=== PATIENT | male | born 1940 | race Caucasian/White ===

== ENCOUNTER → 2017-06-23 | Outpatient (CLI) | payer MEDICARE | END | disposition home or self-care (01) | LOC: CFH 08:38 | PROVIDERS: ATTEND Internal Medicine Critical Care Medicine | DX: R06.02 Shortness of breath (principal) | CPT/HCPCS: 71250 ==

== ENCOUNTER 2019-06-02 15:25 | Emergency (ER) | payer MEDICARE ==
[~2019-06-02] VITALS: Ht 182.9 cm; Wt 80.0 kg
--- NOTE | 2019-06-02 15:55 | NUR ---
PT HERE WITH C/O RLQ ABD PAIN, HAS HAD OVER THE LAST COUPLE DAYS AND HAS GOTTON A BIT WORSE. PT DENIES CP, TRAUMA, N/V/D, URINARY SYMPTOMS.
[2019-06-02] MEDS ORDERED: SODIUM CHLORIDE FLUSH 10ML SYR IVF ONE (16:00)
[2019-06-02 16:04] LABS: BASOPHILS # (AUTO) 0.03 x10^3/uL (0-0.1); BASOPHILS % (AUTO) 0 % (0-1); EOSINOPHILS # (AUTO) 0.04 x10^3/uL (0-0.4); EOSINOPHILS % (AUTO) 0 % (1-7); LYMPHOCYTES # (AUTO) 1.48 x10^3/uL (1-3.4); LYMPHOCYTES % (AUTO) 14 % (22-44); MD NO; MEAN CORPUSCULAR HEMOGLOBIN 30.9 pg (27.5-34.5); MEAN CORPUSCULAR HGB CONC 32.8 g/dL (33.2-36.2); MEAN CORPUSCULAR VOLUME 94.1 fL (81-97); MEAN PLATELET VOLUME 7.5 fL (7.4-10.4); MONOCYTES % (AUTO) 5 % (2-9); NEUTROPHILS # (AUTO) 8.85 x10^3/uL (1.8-6.8); NEUTROPHILS % (AUTO) 80 % (42-75); PLATELET COUNT 394 x10^3/uL (130-400); RED BLOOD COUNT 4.88 x10^6/uL (4.38-5.82); RED CELL DISTRIBUTION WIDTH 13.9 % (9.4-14.8)
--- NOTE | 2019-06-02 16:12 | NUR ---
PT AMBULATED TO BR WITH STEADY GAIT, UA COLLECTED AND SENT. PIV INITIATED AND LABS DRAWN AND SENT TO LAB. PT TO BP, CONT PULSE OX MONITORING PT TO GO TO CT
[2019-06-02 16:15] LABS: ALANINE AMINOTRANSFERASE 34 U/L (12-78); ALBUMIN 3.9 g/dL (3.4-5.0); ANION GAP 8 mmol/L (5-15); CHLORIDE 108 mmol/L (98-107); CREATININE 1.09 mg/dL (0.7-1.3)
[2019-06-02 16:17] LABS: ALKALINE PHOSPHATASE 104 U/L (45-117); BILIRUBIN,TOTAL 0.5 mg/dL (0.2-1.0); TOTAL PROTEIN 7.9 g/dL (6.4-8.2)
[2019-06-02 16:21] LABS: MICROSCOPIC NOT IND
[2019-06-02 16:24] LABS: CULTURE INDICATED? NO
[2019-06-02 17:02] VITALS: BP 200/98
--- NOTE | 2019-06-02 17:03 | NUR ---
PT RESTING ON GURNEY, STILL AWAITING CT. BP RECHECKED BY MANUAL AND IS ELEVATED 200/98, PT DENIES CP, DIZZINESS, KC. UPDATED, NO ORDERS AT THIS TIME
[2019-06-02] MEDS ORDERED: OMNIPAQUE 350 MG/ML, 100ML BOTTLE ONE (17:49)
== END 2019-06-02 18:47 | disposition home or self-care (01) ==
LOC: ED 18:15
DX: N20.0 Calculus of kidney (principal); N23 Unspecified renal colic
CPT/HCPCS: 36415; 74177; 80053; 81003; 83690; 85025; 99284; Q9967

== ENCOUNTER → 2019-06-21 | Outpatient (CLI) | payer MEDICARE ==
[~2019-06-21] MED LIST: ASPI81TA45 PO; ATOR20TA37 PO; IRBE75TA10 PO; OMEP20TA62 PO; STATIN PO
== END | disposition home or self-care (01) ==
LOC: RAD 08:57
PROVIDERS: ATTEND Urology
DX: N20.0 Calculus of kidney (principal); Z87.891 Personal history of nicotine dependence
CPT/HCPCS: 74018

== ENCOUNTER 2019-06-22 07:12 | Day surgery (SDC) | payer MEDICARE ==
[2019-06-20 11:59] LABS: BASOPHILS # (AUTO) 0.04 x10^3/uL (0-0.1); BASOPHILS % (AUTO) 0 % (0-1); EOSINOPHILS # (AUTO) 0.36 x10^3/uL (0-0.4); EOSINOPHILS % (AUTO) 4 % (1-7); LYMPHOCYTES # (AUTO) 1.99 x10^3/uL (1-3.4); LYMPHOCYTES % (AUTO) 24 % (22-44); MD NO; MEAN CORPUSCULAR HEMOGLOBIN 30.9 pg (27.5-34.5); MEAN CORPUSCULAR HGB CONC 32.9 g/dL (33.2-36.2); MEAN CORPUSCULAR VOLUME 93.8 fL (81-97); MEAN PLATELET VOLUME 7.6 fL (7.4-10.4); MONOCYTES # (AUTO) 0.71 x10^3/uL (0.2-0.8); MONOCYTES % (AUTO) 9 % (2-9); NEUTROPHILS # (AUTO) 5.07 x10^3/uL (1.8-6.8); NEUTROPHILS % (AUTO) 62 % (42-75); PLATELET COUNT 315 x10^3/uL (130-400); RED BLOOD COUNT 4.73 x10^6/uL (4.38-5.82); RED CELL DISTRIBUTION WIDTH 14.1 % (9.4-14.8)
[2019-06-20 12:10] LABS: ALBUMIN 3.7 g/dL (3.4-5.0); ANION GAP 8 mmol/L (5-15); CALCIUM 9.1 mg/dL (8.5-10.1); CHLORIDE 109 mmol/L (98-107)
[2019-06-20 12:15] LABS: ALANINE AMINOTRANSFERASE 33 U/L (12-78); ALKALINE PHOSPHATASE 103 U/L (45-117); BILIRUBIN,TOTAL 0.7 mg/dL (0.2-1.0); CREATININE 1.19 mg/dL (0.7-1.3); TOTAL PROTEIN 7.4 g/dL (6.4-8.2)
[~2019-06-22] VITALS: Ht 182.9 cm; Wt 79.0 kg
[2019-06-22 07:54] VITALS: BP 120/76
[2019-06-22] MEDS ORDERED: LACTATED RINGERS 1,000 ML IV SCH (08:13)
[2019-06-22] MEDS ORDERED: FENTANYL PF 250 MCG/5ML ONE (08:53)
[2019-06-22] MEDS ORDERED: MIDAZOLAM 1 MG/ML, 2ML ONE (08:53)
[2019-06-22] MEDS ORDERED: SUGAMMADEX 200 MG/2 ML IVPush ONE (09:35)
[2019-06-22] MEDS ORDERED: PHENYLEPHRINE 10 MG/ML ONE ×2 (09:35→10:39)
[2019-06-22] MEDS ORDERED: HYDROmorphone 2 MG/ML, 1ML IVPush PRN (10:00)
[2019-06-22] MEDS ORDERED: FENTANYL PF 100 MCG/2ML IV PRN (10:00)
[2019-06-22] MEDS ORDERED: hydrALAzine 20 MG/ML, 1ML IV PRN (10:00)
[2019-06-22] MEDS ORDERED: HALOPERIDOL 5 MG/ML IV PRN (10:00)
[2019-06-22] MEDS ORDERED: ACETAMINOPHEN 325 MG TABLET PO PRN (10:00)
[2019-06-22] MEDS ORDERED: MEPERIDINE/PF 25MG/ML,1ML IVPush PRN (10:00)
[2019-06-22] MEDS ORDERED: DEXAMETHASONE 4 MG/ML, 1ML ONE (10:39)
[2019-06-22] MEDS ORDERED: LIDOCAINE-MPF 2% ,5ML ONE (10:39)
[2019-06-22] MEDS ORDERED: PROPOFOL 10 MG/ML, 20ML ONE (10:39)
[2019-06-22] MEDS ORDERED: ONDANSETRON 2MG/ML, 2ML ONE (10:39)
[2019-06-22] MEDS ORDERED: CEFAZOLIN 1,000 MG ONE (10:39)
[2019-06-22] MEDS ORDERED: ROCURONIUM 10MG/ML,5ML ONE (10:39)
[2019-06-22] MEDS ORDERED: ATORVASTATIN 20 MG TABLET PO SCH (21:00)
== END 2019-06-22 12:55 | disposition home or self-care (01) ==
LOC: OUT 07:12
PROVIDERS: ATTEND Urology
DX: N20.0 Calculus of kidney (principal); I10 Essential (primary) hypertension; E78.5 Hyperlipidemia, unspecified; Z79.899 Other long term (current) drug therapy; Z87.891 Personal history of nicotine dependence; Z82.49 Family history of ischemic heart disease and other diseases of the circulatory system
CPT/HCPCS: 36415; 50590; 80053; 85025; 93005; J0690; J1100; J2250; J2370; J2405; J2704; J3010; J7120